=== PATIENT | male | born 1955 | race Caucasian/White ===

== ENCOUNTER 2018-09-21 16:43 | Emergency (ER) | payer OTHER ==
[2018-09-21 18:12] LABS: BASOPHILS # (AUTO) 0.1 10^3/uL (0.0-0.1); BASOPHILS % (AUTO) 0.4 %; EOSINOPHILS % (AUTO) 0.2 %; HGB - HEMOGLOBIN 14.9 g/dL (14.0-18.0); LYMPHOCYTES # (AUTO) 0.6 10^3/uL (1.5-3.5); LYMPHOCYTES % (AUTO) 3.8 %; MEAN CORPUSCULAR HEMOGLOBIN 29.7 pg (27.0-31.0); MEAN CORPUSCULAR HGB CONC 33.3 g/dL (32.0-36.0); MEAN CORPUSCULAR VOLUME 89.2 fL (80.0-94.0); MEAN PLATELET VOLUME 8.4 fL (7.4-11.4); MONOCYTES # (AUTO) 0.7 10^3/uL (0.0-1.0); MONOCYTES % (AUTO) 5.1 %; NEUTROPHILS # (AUTO) 13.4 10^3/uL (1.5-6.6); NEUTROPHILS % (AUTO) 90.5 %; PLT - PLATELET COUNT 268 10^3/uL (130-450); RED BLOOD COUNT 5.03 10^6/uL (4.70-6.10); RED CELL DISTRIBUTION WIDTH 13.6 % (12.0-15.0); WHITE BLOOD COUNT 14.8 x10^3/uL (4.8-10.8)
[2018-09-21] MEDS ORDERED: SODIUM CHLORIDE 0.9% 1,000 ML IV ONE ×2 (18:25→19:06)
[2018-09-21 18:27] LABS: ALBUMIN 4.1 g/dL (3.2-5.5); ALBUMIN/GLOBULIN RATIO 1.2 (1.0-2.2); BILIRUBIN,TOTAL 0.8 mg/dL (0.2-1.0); CREATININE 0.8 mg/dL (0.6-1.2); TOTAL PROTEIN 7.4 g/dL (6.7-8.2)
[2018-09-21] MEDS ORDERED: fentaNYL 100 MCG/2 ML VIAL IVP STA ×2 (19:01→21:28)
[2018-09-21] MEDS ORDERED: HYDROmorphone 1 MG/ML CARPUJECT IVP STA ×2 (19:06→21:17)
[2018-09-21] MEDS ORDERED: ONDANSETRON 4 MG/2 ML VIAL IVP STA (19:06)
[2018-09-21] MEDS ORDERED: IOPAMIDOL-300 100 ML VIAL ONE (19:44)
[2018-09-21] MEDS ORDERED: IOPAMIDOL-300 100 ML VIAL IVP ONE (20:03)
--- NOTE | 2018-09-21 20:47 | ED Physician Documentation ---
PD HPI ABD PAIN - Stated complaint Stated Complaint: ABD PX - Chief complaint Chief Complaint: Abd Pain - Additional information Additional information: 63-year-old male with a history of multiple gastric surgeries and repair of a ventral hernia with recurrence of the same ventral hernia presents the emergency department with increasing abdominal pain which started last evening. The patient reports that normally the hernia will spontaneously reduce but for the past 24 hours it is been unable to reduce and the patient has had increasing pain and discomfort. The patient reports being nauseous with no bowel movement or flatus. The patient denies any fevers or chills. No relieving factors. Symptoms are described as severe Review of Systems Constitutional: denies: Fever, Fatigue Eyes: denies: Loss of vision Ears: denies: Ear pain Nose: denies: Congestion Cardiac: denies: Chest pain / pressure Respiratory: denies: Cough GI: reports: Abdominal Pain, Nausea : denies: Dysuria Skin: denies: Rash Musculoskeletal: denies: Neck pain Neurologic: denies: Generalized weakness Immunocompromised: denies: Chemotherapy PD PAST MEDICAL HISTORY - Past Medical History Cardiovascular: Hypertension : Benign prostate hypertrophy HEENT: None Psych: None Musculoskeletal: Osteoarthritis - Past Surgical History Past Surgical History: Yes - Present Medications Home Medications: Ambulatory Orders Medication Instructions Recorded Confirmed Hydrochlorothiazide 02/11/14 02/11/14 Levothyroxine [Synthroid] 88 mcg PO 02/11/14 02/11/14 Terazosin [Hytrin] 02/11/14 02/11/14 Omeprazole ORAL DAILY 09/21/18 - Allergies Allergies/Adverse Reactions: Allergies Allergy/AdvReac Type Severity Reaction Status Date / Time No Known Drug Allergies Allergy Verified 09/21/18 17:34 - Social History Does the pt smoke?: No Smoking Status: Never smoker Does the pt drink ETOH?: Yes Does the pt have substance abuse?: No - Immunizations Immunizations are current?: Yes - POLST Patient has POLST: No PD ED PE NORMAL - General General: Alert and oriented X 3, Other (The patient appears acutely uncomfortable) - HEENT HEENT: Atraumatic, PERRL, EOMI, Ears normal - Cardiac Cardiac: RRR, Strong equal pulses - Respiratory Respiratory: No respiratory distress, Clear bilaterally - Abdomen Abdomen: Other (The patient has a distended abdomen with a large ventral hernia, when reduction was attempted at the bedside I was unsuccessful and the patient had significant pain and discomfort) - Derm Derm: Normal color - Extremities Extremities: No deformity - Neuro Neuro: Alert and oriented X 3, Normal speech - Psych Psych: Normal affect Results - Vitals Vitals: Vital Signs - 24 hr 09/21/18 09/21/18 09/21/18 17:28 18:13 20:41 Temperature 36 C L Heart Rate 75 77 80 Respiratory 18 20 Rate Blood Pressure 166/95 H 163/88 H 155/84 H O2 Saturation 97 100 96 09/21/18 22:50 Temperature Heart Rate 86 Respiratory 18 Rate Blood Pressure 157/101 H O2 Saturation 96 Oxygen O2 Source Room air - EKG (time done) 18:30 Rate: Rate (enter#) Rhythm: NSR Intervals: Normal ID, Other (Nonspecific intraventricular conduction delay) Ischemia: Normal ST segments Other comments: Other comments (Sinus, no acute ischemic changes) - Labs Labs: Laboratory Tests 09/21/18 09/21/18 09/21/18 18:07 18:07 18:07 WBC 14.8 H RBC 5.03 Hgb 14.9 Hct 44.9 MCV 89.2 MCH 29.7 MCHC 33.3 RDW 13.6 Plt Count 268 MPV 8.4 Neut # (Auto) 13.4 H Lymph # (Auto) 0.6 L [place] # (Auto) 0.7 Eos # (Auto) 0.0 Baso # (Auto) 0.1 Absolute Nucleated RBC 0.00 Nucleated RBC % 0.0 Sodium 134 L Potassium 3.9 Chloride 96 L Carbon Dioxide 30 Anion Gap 8.0 BUN 15 Creatinine 0.8 Estimated GFR (MDRD) 98 Glucose 147 H Calcium 9.0 Total Bilirubin 0.8 AST 27 ALT 32 Alkaline Phosphatase 62 Troponin I < 0.04 Total Protein 7.4 Albumin 4.1 Globulin 3.3 Albumin/Globulin Ratio 1.2 Lipase 22 Urine Color Urine Clarity Urine pH Ur Specific [place] Urine Protein Urine Glucose (UA) Urine Ketones Urine Occult Blood Urine Nitrite Urine Bilirubin Urine Urobilinogen Ur Leukocyte Esterase Ur Microscopic Review Urine Culture Comments 09/21/18 22:20 WBC RBC Hgb Hct MCV MCH MCHC RDW Plt Count MPV Neut # (Auto) Lymph # (Auto) Nance # (Auto) Eos # (Auto) Baso # (Auto) Absolute Nucleated RBC Nucleated RBC % Sodium Potassium Chloride Carbon Dioxide Anion Gap BUN Creatinine Estimated GFR (MDRD) Glucose Calcium Total Bilirubin AST ALT Alkaline Phosphatase Troponin I Total Protein Albumin Globulin Albumin/Globulin Ratio Lipase Urine Color YELLOW Urine Clarity CLEAR Urine pH 7.0 Ur Specific [place] 1.015 Urine Protein NEGATIVE Urine Glucose (UA) NEGATIVE Urine Ketones NEGATIVE Urine Occult Blood NEGATIVE Urine Nitrite NEGATIVE Urine Bilirubin NEGATIVE Urine Urobilinogen 0.2 (NORMAL) Ur Leukocyte Esterase NEGATIVE Ur Microscopic Review NOT INDICATED Urine Culture Comments NOT INDICATED - Rads (name of study) CT abd/pelvis Radiology: Final report received, See rad report (IMPRESSION: 1. Multiple ventral hernias containing large and small bowel, with mid small bowel obstruction due to incarcerated small bowel within 1 of the ventral hernias. 2. Multiple cholelithiasis. 3. Gastric bypass noted. ) PD MEDICAL DECISION MAKING - ED course ED course: The patient still has significant pain and discomfort, I discussed the case with the on-call general surgeon Dr. Mcclendon who will come and evaluate the patient in the emergency department for definitive management Dr. Mcclendon came and evaluated the patient in the emergency department and was able to reduce the ventral hernia at the bedside. The patient had spontaneous resolution of his pain. The patient was observed in the emergency department afterwards and Dr. Mcclendon recommended discharge home if the patient was able to tolerate clear liquids. On reevaluation the patient was resting comfortably and his symptoms were under much better control and he was tolerating liquids without difficulty. The patient will follow up with primary care so that they can refer him back to the [facility] for revision of his ventral hernia. I advised returning to the emergency department immediately for any worsening or any concerns Departure - Departure Clinical Impression: Incarcerated ventral hernia, SBO (small bowel obstruction) Instructions: Hernia How Develops, Hernia, Abdominal Pain Comments: Please call your doctor's office tomorrow to schedule follow-up appointment so that they can refer you to surgery at the [facility] to definitively manage your ventral hernia Please return back to the emergency department immediately for any worsening or any concerns
--- NOTE | 2018-09-21 21:04 | CT Report ---
Reason: abdominal pain Procedure Date: 09/21/2018 Accession Number: [id number] / [id number] Procedure: CT - Abdomen/Pelvis W CPT Code: FULL RESULT: EXAM: CT ABDOMEN AND PELVIS EXAM DATE: 09/21/2018 08:07 PM. CLINICAL HISTORY: Abdominal pain. COMPARISONS: None. TECHNIQUE: Routine helical CT imaging was performed through the abdomen and pelvis. IV contrast: 100 cc of Isovue 300. Enteric contrast: No. Reconstructions: Coronal and sagittal. In accordance with CT protocol optimization, one or more of the following dose reduction techniques were utilized for this exam: automated exposure control, adjustment of mA and/or KV based on patient size, or use of iterative reconstructive technique. FINDINGS: Lung Bases: Unremarkable. Liver: Normal. No masses. Gallbladder/Bile Ducts: Noncalcified gallstones. No dominant ducts. Spleen: Normal. Pancreas: Normal. Adrenal Glands: Normal. Kidneys: Normal. No masses or hydronephrosis. Peritoneal Cavity/Bowel: Gastric bypass noted. Multiple ventral hernias containing large and small bowel. Distal small bowel obstruction due to incarcerated small bowel in 1 of the upper more ventral hernias. Ventral abdomen incompletely imaged, off the kiuno-yo-budy. No free fluid, free air or adenopathy. No masses or acute inflammatory process. The appendix is well visualized and normal. Pelvic Organs: Prostates and distended bladder are unremarkable. Vasculature: No aneurysms or other significant abnormality. Bones: Mild chronic anterior wedging at T12. Other: None. IMPRESSION: 1. Multiple ventral hernias containing large and small bowel, with mid small bowel obstruction due to incarcerated small bowel within 1 of the ventral hernias. 2. Multiple cholelithiasis. 3. Gastric bypass noted. RADIA
[2018-09-21] MEDS ORDERED: LACTATED RINGERS 1,000 ML IV ONE (21:17)
--- NOTE | 2018-09-21 22:29 | CONSULTATION NOTE ---
Referring Provider Name of Referring Provider:: Dr. Borjas Consult Date: 09/21/18 Chief Complaint - Chief Complaint Chief Complaint: abd pain History of Present Illness - Admitted From Admitted From:: ER - History Obtained From Records Reviewed: yes History obtained from: pt, records Exam Limitations: none - History of Present Illness HPI Comment/Other: 63 yo male with hx of morbid obesity, s/p open gastric bypass in the , repair of VIH with mesh in the early , followed by recurrence of the hernia and regaining of most of the lost weight over the next 15 years, with multiple episodes of incarceration/sx of abd pain and nausea treated with recumbency and manipulation by the patient with resolution, who noted the onset 24 hours ago of crampy generalized abd pain which resolved when he manipulated the hernia and obtained recumbency, only to have the sx recur this morning and worsen after a sneezing episode this afternoon, associated with nausea but not vomiting, fever, or chills. Because he was unable to successfully alleviate his sx with the usual maneuvers he presented to the ER for evaluation. He has all his care throught the [facility] system and his current PCP is Dr. Ovalles in [facility]. He has seen a surgeon there who showed him how to reduce the hernia and advised against surgery due to his morbid obesity. He notes progressive wt gain over the years, gaining 20-30# over the past 18 months. He reports a nl colonoscopy 2 weeks ago, nl bm this am. CT of abd/pelvis in the ER tonight shows multifenestrated giant VIH with at least 2 sacs and with large and small bowel within the hernia sacs and findings suggestive of partial mid SBO. No evidence of ischemia or infarction; cholelithiasis. He is feeling better since arrival after being given narcotics. I was able to manipulate his hernias and partially reduce them with marked relief of his sx. He now feels back to baseline and would like to be discharged home if possible. History - Past Medical History Cardiovascular: reports: Hypertension GI: reports: GI bleed (melena in approx 2014;no w/u; rx empirically with PPI therapy without recurrence) : reports: Benign prostate hypertrophy HEENT: reports: None Psych: reports: None Musculoskeletal: reports: Osteoarthritis - Past Surgical History General: reports: Bowel surgery (gastric bypass in the ), Other (VIH repair with mesh; panniculectomy) - Family & Social History Family History Comment/Other: neg for GI tumors Living arrangement: At home Living Situation: With family - Substance History Use: Uses substance without health or social issues: NONE - POLST Patient has POLST: No Meds/Allgy - Home Medications Home Medications: Ambulatory Orders Medication Instructions Recorded Confirmed Hydrochlorothiazide 02/11/14 02/11/14 Levothyroxine [Synthroid] 88 mcg PO 02/11/14 02/11/14 Terazosin [Hytrin] 02/11/14 02/11/14 Omeprazole ORAL DAILY 09/21/18 - Allergies Allergies/Adverse Reactions: Allergies Allergy/AdvReac Type Severity Reaction Status Date / Time No Known Drug Allergies Allergy Verified 09/21/18 17:34 Review of Systems - Constitutional Constitutional: reports: Poor appetite, Weight gain. denies: Fever, Chills, Weakness - Gastrointestinal Gastrointestinal: reports: Abdominal pain, Abdominal distention, Nausea, Bloating, Poor appetite. denies: Constipation, Diarrhea, Change in bowel habits, Rectal bleeding, Black stools, Bloody stools, Vomiting, Bile emesis, Hbuer blood emesis, Coffee grounds emesis, Reflux/heartburn - Hematologic/Lymphatic Hematologic/Lymphatic: denies: Blood clots, Bleeding tendencies Exam - Vital Signs Reviewed Vital Signs: Yes Vital Signs: Vital Signs x48h Temp Pulse Resp BP Pulse Ox 09/21/18 20:41 80 155/84 H 96 09/21/18 18:13 77 20 163/88 H 100 09/21/18 17:28 36 C L 75 18 166/95 H 97 - Physical Exam General Appearance: positive: No acute distress Eyes Bilateral: positive: No scleral icterus ENT: positive: ENT inspection nml, Dry mucous membranes Neck: positive: Nml inspection, No JVD, Trachea midline. negative: Ly mphadenopathy (R), Lymphadenopathy (L) Respiratory: positive: Chest non-tender, No respiratory distress, Breath sounds nml. negative: Wheezes, Rales, Rhonchi Cardiovascular: positive: Regular rate & rhythm, No murmur, No gallop Abdomen: positive: Nml bowel sounds, Other (giant partially reducible VIH with probable loss of domain; abd generally soft, nontender; no peritoneal signs; upper and lower midline surgical scar). 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 At high risk for recurrent sx. - Plan Plan: Trial of clear liquid diet; if tolerates, home tonight with instructions for pt to contact his PCP and surgeon from the [facility] tomorrow and arrange f/u there [facility]. He will continue to use his usual tecniques for treatment of sx if they recur in the interim, and return to the ER in the interiim prn. Discussed with pt and Dr. Borjas, who are in agreement with this plan. - Lab Results Lab results reviewed: Yes Fish Bones: 09/21/18 18:07 09/21/18 18:07 - Diagnostic Imaging Results Diagnostic Imaging Results: positive: Final report reviewed, Read independently Diagnostic Imaging Results Comments: See HPI
[2018-09-21 22:30] LABS: BILIRUBIN,URINE NEGATIVE (NEGATIVE); GLUCOSE, URINE (UA) NEGATIVE (NEGATIVE); KETONES,URINE (UA) NEGATIVE (NEGATIVE); LEUKOCYTE ESTERASE, URINE NEGATIVE (NEGATIVE); NITRITE,URINE NEGATIVE (NEGATIVE); OCCULT BLOOD,URINE NEGATIVE (NEGATIVE); PROTEIN,URINE NEGATIVE (NEGATIVE); UROBILINOGEN,URINE 0.2 (NORMAL) E.U./dL (NORMAL)
[2018-09-21 22:33] LABS: CLARITY,URINE CLEAR (CLEAR)
[2018-09-21 22:51] VITALS: BP 157/101
== END 2018-09-21 23:07 | disposition home or self-care (01) ==
LOC: ED 16:43
DX: K43.9 Ventral hernia without obstruction or gangrene (principal); K56.609 Unspecified intestinal obstruction, unspecified as to partial versus complete obstruction; I51.7 Cardiomegaly; I10 Essential (primary) hypertension; E66.01 Morbid (severe) obesity due to excess calories; Z98.84 Bariatric surgery status
CPT/HCPCS: 36415; 74177; 80053; 81003; 83690; 84484; 85025; 93005; 96361; 96374; 96375; 96376; 99283; J1170; Q9967; 81001; 87086

== ENCOUNTER 2019-04-30 03:22 | Emergency (ER) | payer OTHER ==
--- NOTE | 2019-04-30 03:26 | ED Physician Documentation ---
PD HPI CHEST PAIN - Stated complaint Stated Complaint: CP/SOA - History obtained from History obtained from: Patient - History of Present Illness Timing - onset: Last night Timing - onset during: Rest Pain level max: 3 Pain level now: 0 Quality: Pressure Location: Substernal Radiation: Other (does not radiate) Improved by: Nothing Worsened by: Other (no exacerbating factors) Associated symptoms: Shortness of air. No: Diaphoresis, Nausea, Vomiting, Feeling faint / dizzy, General Weakness, Palpitations, Cough Similar symptoms before: Has not had sx before Recently seen: Not recently seen - Additional information Additional information: c/o midline chest pressure tonight and last night, but asymptomatic during the day. pain resolved [employer] Review of Systems Constitutional: reports: Reviewed and negative Cardiac: reports: Chest pain / pressure. denies: Palpitations, Pedal edema, Calf pain Respiratory: reports: Dyspnea. denies: Cough, Wheezing GI: reports: Reviewed and negative Musculoskeletal: denies: Extremity swelling Neurologic: reports: Reviewed and negative PD PAST MEDICAL HISTORY - Past Medical History Cardiovascular: Hypertension GI: GI bleed (melena in approx 2014;no w/u; rx empirically with PPI therapy without recurrence) : Benign prostate hypertrophy HEENT: None Psych: None Musculoskeletal: Osteoarthritis - Past Surgical History Past Surgical History: Yes General: Bowel surgery (gastric bypass in the ), Other (VIH repair with mesh; panniculectomy) - Present Medications Home Medications: Ambulatory Orders Medication Instructions Recorded Confirmed Hydrochlorothiazide 02/11/14 02/11/14 Levothyroxine [Synthroid] 88 mcg PO 02/11/14 02/11/14 Terazosin [Hytrin] 1 cap PO DAILY 02/11/14 02/11/14 Omeprazole ORAL DAILY 09/21/18 Potassium Chloride [Micro-K] 1 cap PO DAILY 04/30/19 04/30/19 - Allergies Allergies/Adverse Reactions: Allergies Allergy/AdvReac Type Severity Reaction Status Date / Time No Known Drug Allergies Allergy Verified 04/30/19 03:32 - Social History Does the pt smoke?: No Smoking Status: Never smoker Does the pt drink ETOH?: Yes Does the pt have substance abuse?: No - Immunizations Immunizations are current?: Yes - POLST Patient has POLST: No PD ED PE NORMAL - Vitals Vital signs reviewed: Yes - General General: Alert and oriented X 3, No acute distress, Well developed/nourished - HEENT HEENT: Moist mucous membranes - Neck Neck: Supple, no meningeal sign - Cardiac Cardiac: RRR, No murmur, No gallop, No rub - Respiratory Respiratory: No respiratory distress, Clear bilaterally - Abdomen Abdomen: Normal bowel sounds, Soft, Other (extensive soft, nontender hernia (not new, per patient)) - Derm Derm: Normal color, Warm and dry - Extremities Extremities: No edema Results - Vitals Vitals: Vital Signs - 24 hr 04/30/19 04/30/19 04/30/19 03:27 04:52 05:41 Temperature 37.3 C Heart Rate 86 76 68 Respiratory 18 18 19 Rate Blood Pressure 160/100 H 130/79 134/85 H O2 Saturation 98 96 97 04/30/19 05:43 Temperature 36.7 C Heart Rate Respiratory Rate Blood Pressure O2 Saturation Oxygen O2 Source Room air - EKG (time done) No standard instances Rate: Rate (enter#) (77) Rhythm: NSR [place]: LAD, Anterior hemiblock Intervals: Normal MD QRS: LVH Ischemia: Normal ST segments - Labs Labs: Laboratory Tests 04/30/19 04/30/19 04/30/19 03:45 03:45 03:45 WBC 8.6 RBC 4.38 L Hgb 13.5 L Hct 40.5 L MCV 92.5 MCH 30.8 MCHC 33.3 RDW 13.1 Plt Count 250 MPV 10.2 Neut # (Auto) 5.6 Lymph # (Auto) 1.8 [place] # (Auto) 0.9 Eos # (Auto) 0.3 Baso # (Auto) 0.0 Absolute Nucleated RBC 0.00 Nucleated RBC % 0.0 D-Dimer 278.0 H Sodium 142 Potassium 3.3 L Chloride 102 Carbon Dioxide 31 Anion Gap 9.0 BUN 12 Creatinine 0.7 Estimated GFR (MDRD) 114 Glucose 121 H Calcium 8.9 Total Bilirubin 1.1 H AST 22 ALT 28 Alkaline Phosphatase 51 Troponin I High Sens Total Protein 7.1 Albumin 3.9 Globulin 3.2 Albumin/Globulin Ratio 1.2 Lipase 27 04/30/19 03:45 WBC RBC Hgb Hct MCV MCH MCHC RDW Plt Count MPV Neut # (Auto) Lymph # (Auto) [place] # (Auto) Eos # (Auto) Baso # (Auto) Absolute Nucleated RBC Nucleated RBC % D-Dimer Sodium Potassium Chloride Carbon Dioxide Anion Gap BUN Creatinine Estimated GFR (MDRD) Glucose Calcium Total Bilirubin AST ALT Alkaline Phosphatase Troponin I High Sens 7.6 Total Protein Albumin Globulin Albumin/Globulin Ratio Lipase - Rads (name of study) chest xray Radiology: Prelim report reviewed, See rad report PD MEDICAL DECISION MAKING - ED course Complexity details: reviewed results, re-evaluated patient, considered differential, d/w patient ED course: asymptomatic during ED stay. Has not had cardiac-oriented testing in the past; specifically, does not recall ever having a stress test. I encouraged him to return if symptoms recur, but to follow up with his primary care provider even if he feels well, as his PCP might want to order further tests such as an echo and/or stress test. Departure - Departure Disposition: 01 Home, Self Care Clinical Impression: Chest pain Qualifiers: Chest pain type: unspecified Qualified Code(s): R07.9 - Chest pain, unspecified Condition: Good Instructions: ED Chest Pain Atypical Unkn Cause Follow-Up: GAETANO FOX DO [Primary Care Provider] - Discharge Date/Time: 04/30/19 05:51
[2019-04-30 03:53] LABS: BASOPHILS % (AUTO) 0.5 %; EOSINOPHILS # (AUTO) 0.3 10^3/uL (0.0-0.7); EOSINOPHILS % (AUTO) 3.2 %; HGB - HEMOGLOBIN 13.5 g/dL (14.0-18.0); LYMPHOCYTES # (AUTO) 1.8 10^3/uL (1.5-3.5); LYMPHOCYTES % (AUTO) 20.6 %; MEAN CORPUSCULAR HEMOGLOBIN 30.8 pg (27.0-31.0); MEAN CORPUSCULAR HGB CONC 33.3 g/dL (32.0-36.0); MEAN CORPUSCULAR VOLUME 92.5 fL (80.0-94.0); MEAN PLATELET VOLUME 10.2 fL (7.4-11.4); MONOCYTES # (AUTO) 0.9 10^3/uL (0.0-1.0); MONOCYTES % (AUTO) 10.6 %; NEUTROPHILS # (AUTO) 5.6 10^3/uL (1.5-6.6); NEUTROPHILS % (AUTO) 64.4 %; PLT - PLATELET COUNT 250 10^3/uL (130-450); RED BLOOD COUNT 4.38 10^6/uL (4.70-6.10); RED CELL DISTRIBUTION WIDTH 13.1 % (12.0-15.0); WHITE BLOOD COUNT 8.6 x10^3/uL (4.8-10.8)
--- NOTE | 2019-04-30 04:04 | XRAY Report ---
Reason: SOA, chest px Procedure Date: 04/30/2019 Accession Number: [id number] / [id number] Procedure: XR - Chest 1 View X-Ray CPT Code: 76567 FULL RESULT: EXAM: CHEST RADIOGRAPHY EXAM DATE: 04/30/2019 03:34 AM. CLINICAL HISTORY: SOA, chest px. COMPARISON: None. TECHNIQUE: 1 view. FINDINGS: Lungs/Pleura: No focal opacities evident. No pleural effusion. No pneumothorax. Mediastinum: Within exam limitations, the cardiomediastinal contour is normal. Other: None. IMPRESSION: Normal single view chest. RADIA
[2019-04-30 04:07] LABS: ALBUMIN 3.9 g/dL (3.2-5.5); ALBUMIN/GLOBULIN RATIO 1.2 (1.0-2.2); BILIRUBIN,TOTAL 1.1 mg/dL (0.2-1.0); CALCIUM 8.9 mg/dL (8.5-10.3); CREATININE 0.7 mg/dL (0.6-1.2); TOTAL PROTEIN 7.1 g/dL (6.7-8.2)
[2019-04-30 05:42] VITALS: BP 134/85
== END 2019-04-30 05:51 | disposition home or self-care (01) ==
LOC: ED 03:22
DX: R07.89 Other chest pain (principal); I10 Essential (primary) hypertension; I44.4 Left anterior fascicular block; K46.9 Unspecified abdominal hernia without obstruction or gangrene
CPT/HCPCS: 36415; 71045; 80053; 83690; 84484; 85025; 85379; 93005; 99284

== ENCOUNTER 2023-05-12 14:10 | Outpatient (CLI) | payer OTHER ==
--- NOTE | 2023-05-12 14:58 | Sleep Patient Instructions ---
Sleep Center Visit Summary - Patient Visit Information Reason for Visit: Initial consultation - Patient Instructions Instructions Attached: Sleep Study Additional Instructions: You will continue with CPAP therapy with pressure set at 7-15 cmH2O. We will have you do a new sleep study to get a verification of diagnosis. We encourage you to continue to try to lose weight. Please follow up with the sleep care office after sleep study. - Clinic Information Contact: [facility] [address] [place] [address] [email or web address] T: [phone]
--- NOTE | 2023-05-12 15:11 | SLEEP CARE CONSULTATION ---
Information from patient questionnaire entered by Rosemary Alegria. I have reviewed and concur with the information entered by Rosemary Alegria. This document represents the service I personally performed and the decisions made by me, Linda Valladares ARNP. 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) Usual bedtime: 1-2AM Time it takes to fall asleep: 5+MIN Snores at night: Yes Observed to quit breathing while asleep: Yes Sleeps alone due to snoring: Yes Reasons for waking at night: reports: Gasping for air Toss, Turn, or Twitch while sleeping: No Recalls having dreams: Yes Usually gets out of bed at: 8AM Feels refreshed in the morning: Yes Morning headache: No Sleepy or fatigued during the day: No Ever fallen asleep while driving: No Takes day naps: No Dreams during day naps: No Prior sleep studies: Yes Year and Where: [id number] [facility] Additional HPI information: DELROY KOHLI was diagnosed previously to have mild, AHI 9.1, obstructive sleep apnea-hypopnea syndrome [facility] and comes in today to establish care for CPAP therapy. - Parasomnia Symptoms Ever been unable to move upon waking from sleep: No Walks in sleep: No Talks in sleep: No Ever acted out dreams in sleep: No Ever felt weak in the knees when startled or emotional: No Bothered by creepy, crawly, restless sensations in legs: No Problems with memory or concentration: No CPAP Compliance Data - Data Reviewed with Patient Average duration of nightly device use: 6.3 hours Compliance rate %: 85 (168/180 days used) Current pressure setting (cmH2O): 7-15 (avg 11.8) Average residual AHI: 1.4 Average large leak: 30 L/min Compliance data discussion: He has a ResMed S9 that he got originally. He gets his supplies from the [place]. He does not use the humidifier. He is using a Dreamwear full face mask. [facility] just [facility] since his older machine is over 10 years old. Subjective Patient concerns: reports: mask leak noise (wakes him up). denies: aerophagia, mask discomfort, air blowing in eyes, condensation in mask/hose, nasal congestion, dry mouth, nose, throat, epistaxis Observed to snore while using device: No Current pressure setting perceived as: comfortable On therapy, patient: reports: other (does not feel difference in sleep; uses to safeguard health). denies: drowsiness while driving Initial [place] Sleepiness Scale score: 6 (04/07/23) Past Medical History Past Medical History: reports: Hypertension, Claustrophobia, Arthritis, Hypothyroidism, Other (BPH) Social History The patient's occupation is a RE. Patient is Single and lives in . Have you smoked in the past 12 months: No Alcohol use: No Caffeine use: Yes Caffeine amount and frequency: 4X DAILY Family History Family history of sleep disordered breathing: Yes Family Hx Sleep Apnea: Mother: Snoring, Grandparent: Snoring Allergies and Home Medications Known drug allergies: No Drug allergies reviewed: Yes Home medication list reviewed: Yes Allergy and home medication list: Allergies No Known Drug Allergies Allergy (Verified 05/08/23 09:11) Home Medications Medication Instructions Recorded Confirmed Last Taken Type Levothyroxine [Synthroid] See Rx Instructions .ROUTE .COMPLEX 02/11/14 05/08/23 09/21/18 History Terazosin [Hytrin] See Rx Instructions .ROUTE .COMPLEX 02/11/14 05/08/23 09/21/18 History hydroCHLOROthiazide See Rx Instructions .ROUTE .COMPLEX 02/11/14 05/08/23 09/21/18 History [Hydrochlorothiazide] Omeprazole See Rx Instructions .ROUTE .COMPLEX 09/21/18 05/08/23 09/21/18 History Potassium Chloride [Micro-K] See Rx Instructions .ROUTE .COMPLEX 04/30/19 05/08/23 Unknown History Calcium Carbonate [Calcium] See Rx Instructions .ROUTE .COMPLEX 05/08/23 05/08/23 Unknown History Cholecalciferol [Vitamin D3] See Rx Instructions .ROUTE .COMPLEX 05/08/23 05/08/23 Unknown History Cyanocobalamin (Vitamin B-12) See Rx Instructions .ROUTE .COMPLEX 05/08/23 05/08/23 Unknown History [Vitamin B12] Ferrous Bis-Glycinate Chelate See Rx Instructions .ROUTE .COMPLEX 05/08/23 05/08/23 Unknown History [Iron Bisglycinate] Multivitamin See Rx Instructions .ROUTE .COMPLEX 05/08/23 05/08/23 Unknown History [place]-3/Dha/Epa/Fish Oil [Fish Oil See Rx Instructions .ROUTE .COMPLEX 05/08/23 05/08/23 Unknown History 1,000 mg Softgel] Pyridoxine HCl (Vitamin B6) See Rx Instructions .ROUTE .COMPLEX 05/08/23 3 Unknown History [Vitamin B6] Review of Systems Weight gain over past 5 years: 20 Cardiovascular: reports: high blood pressure, leg or foot swelling Gastrointestinal: denies: heartburn Urinary: reports: incontinence (COVID) Neurological: denies: headaches Psychiatric: denies: anxiety, depression Ear/Nose/Throat: reports: dry mouth/throat, injury to nose (2X), wisdom teeth removed Endocrine: reports: thyroid disease Musculoskeletal: reports: joint pain, joint swelling Immunologic: reports: sneezing, rash, itching, allergies to food or environment Physical Exam Vital signs obtained and entered by: ROSEMARY Mulligan MA Blood Pressure: 172/89 (RIGHT ) Cuff size: wrist Heart Rate: 66 O2 Saturation: 96 Height: 5 ft 8 in Weight: 326 lb Body Mass Index: 49.6 BMI Classification: Morbidly Obese Neck circumference: 18 Heart: regular rate and rhythm Lungs: clear bilaterally Impression and Plan 1. Obstructive Sleep Apnea-Hypopnea Syndrome, mild, with good treatment compliance and good apnea control. He uses his CPAP to safeguard his health but says he has not noted an improvement of sleep or restfulness with CPAP use. He last had a sleep study in 2010 and needs another study to verify diagnosis and severity. [facility] told him he may need a BIPAP and set him up with a new PAP machine that can be a CPAP or BiPAP. After his sleep study, we will re-evaluate whether he needs a titration study to qualify him for BIPAP settings. I advised him not to use his CPAP a night before the study but he can resume after the sleep study is completed. He voiced understanding and agreed with plan. Patient's apnea severity and rationale for treatment to reduce apnea, improve sleep quality and reduce cardiovascular and cerebrovascular events was reviewed. I also reviewed the benefit of consistent device use of CPAP for hypertension. 2. Obesity, unspecified. Currently patients BMI is 49.6. Obesity increases the risk of apnea, CPAP pressure requirements and overall health risks especially cardiovascular and diabetes. Thus patient is advised to lose weight. 3. Elevated blood pressure reading in patient with hypertension. He denies chest pain, shortness of breath, headaches or dizziness. He did take his medications but states he did have a caffeine drink prior to his appointment today. * Continue auto CPAP pressure at 7-15 cmH2O * PSG to verify diagnosis and severity * Notify me if snoring with mask or feeling that the pressure is too much or too little * Attempt to lose weight * Call this office if any problems using CPAP * Return for follow up after sleep study, or sooner if concerns arise Counseling Topics: Weight loss health impact Plan: PSG Visit Type: In Office Time Spent with Patient (minutes): 43 Provider Statement: I spent 100% of the Face to Face Visit with the patient with greater than 50% spent counseling the patient and coordination of care.
[2023-05-12 15:16] VITALS: BP 172/89; O2SAT 96
== END 2023-05-12 14:11 | disposition home or self-care (01) ==
LOC: SC 14:10
PROVIDERS: ATTEND Nurse Practitioner Family
DX: G47.33 Obstructive sleep apnea (adult) (pediatric) (principal); E66.01 Morbid (severe) obesity due to excess calories; Z68.42 Body mass index [BMI] 45.0-49.9, adult
CPT/HCPCS: 99203; 99212

== ENCOUNTER 2023-05-21 20:31 | Outpatient (CLI) | payer OTHER | END 2023-05-21 20:32 | disposition home or self-care (01) | LOC: SC 20:31 | PROVIDERS: ATTEND Nurse Practitioner Family | DX: G47.33 Obstructive sleep apnea (adult) (pediatric) (principal); G47.61 Periodic limb movement disorder | CPT/HCPCS: 95810 ==

== ENCOUNTER 2023-06-03 12:54 | Outpatient (CLI) | payer OTHER ==
--- NOTE | 2023-06-03 13:26 | Sleep Patient Instructions ---
Sleep Center Visit Summary - Patient Visit Information Reason for Visit: Sleep study follow-up - Patient Instructions Additional Instructions: You are being continued on CPAP therapy with pressure setting at 7-15 cmH2O. We will have you followup in 1-2 months. Please call office to schedule a follow up appointment in the sleep care office. - Clinic Information Contact: [facility] [address] [place] [address] [email or web address] T: [phone]
--- NOTE | 2023-06-03 13:40 | SLEEP CARE CONSULTATION ---
Information from patient questionnaire entered by Deonna Alegria. I have reviewed and concur with the information entered by Deonna Alegria. This document represents the service I personally performed and the decisions made by , Linda Valladares ARNP. History of Present Illness Service Date and Time: 06/03/2023 1254 Initial [place] Sleepiness Scale score: 6 (04/07/23) Current [place] Sleepiness Scale score: 6 (06/03/23) Additional HPI information: DELROY KOHLI returns for follow up and results of the recently performed polysomnography. The sleep study showed moderate obstructive sleep apnea with an average AHI of 20.6 and miguel oxygen saturation of 77%. He also had severe PLMs contributing to sleep fragmentation. I explained the pathophysiology behind obstructive sleep apnea. We then spent quite a bit of time discussing different treatment options. For mild obstructive sleep apnea, surgery and oral appliance are alternatives to nasal CPAP therapy but in moderate or severe cases, nasal CPAP is the most effective and reliable treatment. I reviewed the impact of weight changes on sleep apnea and strongly recommended losing weight. The patient will continue with the nasal CPAP therapy. Nasal autoCPAP set at 7- 15 cmH20. Patient counseled not drink alcohol less than 4 hours before bedtime as it can increase snoring and apnea. Patient was cautioned about risks of drowsy driving until sleepiness symptoms resolve. Patient denies drowsy driving. Sleep Study - Results Type of Sleep Study: Polysomnography (COMPLETED 05/21/23) Prior sleep studies: Yes Year and Where: [id number] [facility] Polysomnography/Home Sleep Study results: IMPRESSION: The quality of the study is good. The patient had normal sleep efficiency. The sleep architecture was abnormal for sleep fragmentation and reduced amount of time spent in slow wave sleep (N3). Respiratory monitoring showed moderate obstructive sleep apnea-hypopnea (AHI = 20.6) associated with frequent arousals, oxyhemoglobin desaturation and moderate hypoxia (miguel oxygen saturation of 77 %). Baseline oxygen saturation was normal. The respiratory events occurred more frequently during supine sleep (supine AHI = 25.4; non-supine = 15.06). Snore was light to loud in intensity. There was severe periodic leg movement of sleep contributing to the sleep fragmentation. Cardiac rhythm was normal sinus rhythm without significant arrhythmia. No abnormal behavior (parasomnia) observed during the night. Allergies and Home Medications Known drug allergies: No Drug allergies reviewed: Yes Home medication list reviewed: Yes (no changes) Allergy and home medication list: Allergies No Known Drug Allergies Allergy (Verified 06/02/23 13:30) Review of Systems Review of systems same as previous: Yes (NO CHANGE) Physical Exam Vital signs obtained and entered by: DEONNA Mulligan MA Blood Pressure: 180/100 (LEFT ARM; 142/94 second msmnt) Cuff size: regular Heart Rate: 71 O2 Saturation: 97 Height: 5 ft 8 in Weight: 321 lb 12.8 oz Body Mass Index: 48.9 BMI Classification: Morbidly Obese Impression and Plan 1. Obstructive Sleep Apnea-Hypopnea Syndrome, moderate. On CPAP therapy, the patient has better sleep quality and is more rested overall. He is currently using a CPAP with his pressure setting at 7-15 cm H2O. He has significant improvement of his sleep apnea current pressure settings. I do not feel he needs a titration study at this time. We will continue with him at current settings and have him use his new CPAP. We made sure it was set with the settings of 7-15 cm H2O. I will follow-up with him in 1 to 2 months to make sure everything is working well. Patient's apnea severity and rationale for treatment to reduce apnea, improve sleep quality and reduce cardiovascular and cerebrovascular events was reviewed. I also reviewed the benefit of consistent device use of CPAP for hypertension. 2. Hypoxemia, moderate, with a miguel oxygen saturation of 77% and 25 minutes spent under 90%. The baseline oxygen saturation was normal with an average oxygen saturation of 91%. 3. Periodic limb movement, severe, that did contribute to fragmentation of patients sleep. Periodic limb movement of sleep (PLMS) is characterized by episodes of repetitive limb movements that occur during sleep and usually involve the lower limbs. The etiology is unknown but can be associated with restless leg syndrome (RLS), neuropathy, spinal cord diseases, kidney disease, rheumatological disorders, narcolepsy, obstructive sleep apnea, and REM sleep behavior disorder. Sleep hygiene methods can also improve sleep as well as lifestyle changes such as regular exercise. Patient was advised that no treatment is needed at this time. If symptoms increase, then further evaluation is indicated. 4. Obesity, unspecified. Currently patients BMI is 48.9. Obesity increases the risk of apnea, CPAP pressure requirements and overall health risks especially cardiovascular and diabetes. Thus patient is advised to lose weight. 5. Elevated blood pressure in patient with hypertension. His initial blood pressure measurement was 180/100. He said he'd had a very stressful morning at work and just finished a caffeine drink. After he had been sitting for 20 minutes, his re-test was 142/94. He denies chest pain, shortness of breath, dizziness or headaches. He is to followup as needed with PCP. * Continue auto CPAP pressure at 7-15 cmH2O * Notify me if snoring with mask or feeling that the pressure is too much or too little * Attempt to lose weight * Call this office if any problems using CPAP * Return for follow up in 1-2 months, or sooner if concerns arise Counseling Topics: Weight loss health impact Follow up with Sleep Care in: 1-2 months Visit Type: In Office Time Spent with Patient (minutes): 35 Provider Statement: I spent 100% of the Face to Face Visit with the patient with greater than 50% spent counseling the patient and coordination of care.
[2023-06-03 13:56] VITALS: BP 180/100; O2SAT 97
== END 2023-06-03 12:55 | disposition home or self-care (01) ==
LOC: SC 12:54
PROVIDERS: ATTEND Nurse Practitioner Family
DX: G47.33 Obstructive sleep apnea (adult) (pediatric) (principal); R09.02 Hypoxemia; E66.01 Morbid (severe) obesity due to excess calories; Z68.42 Body mass index [BMI] 45.0-49.9, adult; G47.61 Periodic limb movement disorder; I10 Essential (primary) hypertension
CPT/HCPCS: 99212; 99213

== ENCOUNTER 2023-08-06 10:00 | Outpatient (CLI) | payer OTHER ==
--- NOTE | 2023-08-06 10:42 | Sleep Patient Instructions ---
Sleep Center Visit Summary - Patient Visit Information Reason for Visit: 2-month follow-up - Patient Instructions Additional Instructions: You were here for follow up of BIPAP therapy. You will be continued on BiPAP therapy with pressure at 15/6 cmH2O. You should follow up with sleep care in 12 months. You may contact us sooner for any questions or concerns. - Clinic Information Contact: [facility] [address] [place] [id number] [email or web address] T: [phone]
--- NOTE | 2023-08-06 10:50 | SLEEP CARE CONSULTATION ---
Information from patient questionnaire entered by Deonna Alegria. I have reviewed and concur with the information entered by Deonna Alegria. This document represents the service I personally performed and the decisions made by , Linda Valladares ARNP. History of Present Illness Service Date and Time: 08/06/2023 1000 Previous diagnosis: Moderate, Obstructive Sleep Apnea-Hypopnea Syndrome AHI: 20.6 (05/2023) Reason for follow up: other (2 MONTH F/U) Equipment type: BiPAP (VAuto ResMed AirCurve 10) Equipment [facility] Mask style: Nasal pillows Mask brand: Respironics (Dreamwear) Backup mask available: Yes (other mask) Prior sleep studies: Yes Year and Where: [id number] [facility] Type of Sleep Study: Polysomnography (COMPLETED 05/21/23) HPI additional information: DELROY KOHLI was diagnosed to have moderate, AHI 20.6, obstructive sleep apnea-hypopnea syndrome and returned today for CPAP therapy 2 month follow-up. Sleep Study - Results Type of Sleep Study: Polysomnography (COMPLETED 05/21/23) Prior sleep studies: Yes Year and Where: [id number] [facility] CPAP Compliance Data - Data Reviewed with Patient Average duration of nightly device use: 5 HRS 55 MINS Compliance rate %: 72 (05/28/2023-07/26/2023; 49/60 days used) Current pressure setting (cmH2O): 15/6 with 5 pressure support Average residual AHI: 2.4 Central apnea: 0 Obstructive apnea: 0.4 Hypopnea: 0.6 Average large leak: 46.3 L/min Subjective Missed days of use due to: reports: mask issues (mask broke), travel Patient concerns: reports: mask leak noise, dry mouth, nose, throat. denies: aerophagia, mask discomfort, air blowing in eyes, condensation in mask/hose, nasal congestion, epistaxis Observed to snore while using device: No Current pressure setting perceived as: comfortable On therapy, patient: reports: other (no difference, never feels difference since starting therapy). denies: drowsiness while driving Initial [place] Sleepiness Scale score: 6 (04/07/23) Current [place] Sleepiness Scale score: 6 Allergies and Home Medications Known drug allergies: No Drug allergies reviewed: Yes Home medication list reviewed: Yes (no changes) Allergy and home medication list: Allergies No Known Drug Allergies Allergy (Verified 08/04/23 14:32) Review of Systems Review of systems same as previous: No (DDS-dental) Physical Exam Vital signs obtained and entered by: ANUSHKA URBANO Blood Pressure: 142/78 (left arm) Cuff size: large Heart Rate: 65 O2 Saturation: 96 Height: 5 ft 8 in Weight: 318 lb 12.8 oz Body Mass Index: 48.4 BMI Classification: Morbidly Obese Impression and Plan 1. Obstructive Sleep Apnea-Hypopnea Syndrome, moderate, with good treatment compliance and good apnea control. He comes in today with many questions which we reviewed in depth. His machine is set as a BiPAP with pressure set at 15\6 cm H2O with 5 cm H2O pressure support. I had originally seen that he was set up on APAP. However, he has good control of his sleep apnea with the current settings and no changes will be made today. We will follow-up with him next year. Patient has significant improvement of their sleep apnea and is satisfied with current CPAP therapy. Patient's apnea severity and rationale for treatment to reduce apnea, improve sleep quality and reduce cardiovascular and cerebrovascular events was reviewed. I also reviewed the benefit of consistent device use of BIPAP for hypertension. 2. Obesity, unspecified. Currently patients BMI is 48.4. Obesity increases the risk of apnea, BIPAP pressure requirements and overall health risks especially cardiovascular and diabetes. Thus patient is advised to lose weight. * Continue BIPAP pressure at 15/6 cmH2O with 5 cmH2O pressure support * Notify me if snoring with mask or feeling that the pressure is too much or too little * Attempt to lose weight * Call this office if any problems using BIPAP * Return for follow up in 12 months, or sooner if concerns arise Counseling Topics: Weight loss health impact Follow up with Sleep Care in: 1 year Visit Type: In Office Time Spent with Patient (minutes): 42 Provider Statement: I spent 100% of the Face to Face Visit with the patient with greater than 50% spent counseling the patient and coordination of care.
[2023-08-06 10:54] VITALS: BP 142/78; O2SAT 96
== END 2023-08-06 10:01 | disposition home or self-care (01) ==
LOC: SC 10:00
PROVIDERS: ATTEND Nurse Practitioner Family
DX: G47.33 Obstructive sleep apnea (adult) (pediatric) (principal); E66.01 Morbid (severe) obesity due to excess calories; Z68.42 Body mass index [BMI] 45.0-49.9, adult
CPT/HCPCS: 99212; 99214